=== PATIENT | male | born 1955 | race Caucasian/White ===

== ENCOUNTER 2017-09-12 22:29 | Emergency (ER) | payer OTHER ==
[~2017-09-12] VITALS: Ht 182.9 cm; Wt 81.7 kg
[2017-09-13] MEDS ORDERED: Percocet 5-3251 EACH PO (00:34)
[2017-09-13] MEDS ORDERED: Augmentin 875-1 EACH PO (00:34)
== END 2017-09-13 00:52 | disposition home or self-care (01) ==
LOC: ER 22:29
DX: K04.7 Periapical abscess without sinus (principal)
CPT/HCPCS: 64400; 99283

== ENCOUNTER 2019-04-19 18:42 | Emergency (ER) | payer OTHER ==
[~2019-04-19] VITALS: Ht 185.4 cm; Wt 83.9 kg
[~2019-04-19 18:42] MED LIST: ACET500 PO; Augmentin 875-1 EACH PO; NAPR220 PO; OMEPRAZOLE MAGN20 MG PO; Percocet 5-3251 EACH PO; RIZATRIPTAN10 MG SL; TAMS.4ER PO
[2019-04-19] MEDS ORDERED: Ultram50 MG PO (19:00)
[2019-04-19] MEDS ORDERED: CLIN300 (19:00)
[2019-04-19] MEDS ORDERED: CLOT10 SS (19:00)
== END 2019-04-19 19:41 | disposition home or self-care (01) ==
LOC: ER 18:42
DX: K04.7 Periapical abscess without sinus (principal); K02.9 Dental caries, unspecified; B37.0 Candidal stomatitis; R03.0 Elevated blood-pressure reading, without diagnosis of hypertension; K21.9 Gastro-esophageal reflux disease without esophagitis; Z87.891 Personal history of nicotine dependence; Z88.1 Allergy status to other antibiotic agents; Z79.899 Other long term (current) drug therapy; Z79.891 Long term (current) use of opiate analgesic
CPT/HCPCS: 99282; A9270

== ENCOUNTER → 2020-06-08 | Outpatient (CLI) | payer SELFPAY ==
[~2020-06-08] MED LIST changes: +CLIN300; +CLOT10 SS; +Ultram50 MG PO
== END | disposition home or self-care (01) ==
LOC: LAB SHORT 14:59 → PLD 14:59
DX: L57.0 Actinic keratosis (principal)
CPT/HCPCS: 88305

== ENCOUNTER → 2021-09-12 | Outpatient (CLI) | payer MEDICARE | END | disposition home or self-care (01) | LOC: LAB SHORT 11:27 | DX: C44.319 Basal cell carcinoma of skin of other parts of face (principal) | CPT/HCPCS: 88305 ==

== ENCOUNTER → 2021-10-04 | Outpatient (CLI) | payer MEDICARE | END | disposition home or self-care (01) | LOC: LAB SHORT 11:12 | DX: D48.5 Neoplasm of uncertain behavior of skin (principal) | CPT/HCPCS: 88305 ==

== ENCOUNTER → 2022-02-13 | Outpatient (CLI) | payer MEDICARE | END | disposition home or self-care (01) | LOC: PLD 14:42 → LAB SHORT 14:42 | DX: C44.519 Basal cell carcinoma of skin of other part of trunk (principal) | CPT/HCPCS: 88305; 88312 ==